=== PATIENT | male | born 1965 | race Caucasian/White ===

== ENCOUNTER 2017-04-16 12:52 | Emergency (ER) | payer SELFPAY ==
[~2017-04-16] VITALS: Ht 167.6 cm; Wt 97.2 kg
[~2017-04-16 12:52] MED LIST: ATOR20TA PO; HYDR12.53 PO; IBUP200C75 PO; LISI5TAB7 PO; METF500T4 PO; OXYC1TAB7 PO
[2017-04-16 13:00] VITALS: BP 166/99
[2017-04-16] MEDS ORDERED: SULFAMETH./TRIMETHOPRIM DS 800MG/160MG TABLET PO ONE (14:00)
[2017-04-16] MEDS ORDERED: IBUPROFEN 200 MG TABLET PO ONE (14:00)
[2017-04-16] MEDS ORDERED: CEFAZOLIN 1,000 MG ONE (14:00)
[2017-04-16] MEDS ORDERED: IBUPROFEN 200 MG TABLET ONE (14:00)
[2017-04-16] MEDS ORDERED: DIPHENHYDRAMINE 25 MG CAPSULE ONE (14:00)
[2017-04-16] MEDS ORDERED: CEFAZOLIN 1,000 MG IM ONE (14:00)
[2017-04-16] MEDS ORDERED: DIPHENHYDRAMINE 25 MG CAPSULE PO ONE (14:00)
[2017-04-16] MEDS ORDERED: SULFAMETH./TRIMETHOPRIM DS 800MG/160MG TABLET ONE (14:01)
== END 2017-04-16 14:10 | disposition home or self-care (01) ==
LOC: ED 13:55
DX: L03.114 Cellulitis of left upper limb (principal); E11.65 Type 2 diabetes mellitus with hyperglycemia; E78.00 Pure hypercholesterolemia, unspecified; I10 Essential (primary) hypertension; Z87.01 Personal history of pneumonia (recurrent); Z91.14 Patient's other noncompliance with medication regimen; Z98.890 Other specified postprocedural states
CPT/HCPCS: 96372; 99284; J0690; Q0163

== ENCOUNTER 2017-09-10 09:12 | Emergency (ER) | payer SELFPAY ==
[~2017-09-10] VITALS: Ht 167.6 cm; Wt 97.6 kg
[2017-09-10] MEDS ORDERED: morphine SULFATE 10 MG/ML, 1ML ONE ×2 (10:55→11:44)
[2017-09-10] MEDS ORDERED: ONDANSETRON 2MG/ML, 2ML ONE (10:55)
[2017-09-10] MEDS: MORPHINE SULFATE 4 MG/ML, 1ML IVPush PRN ×2 (11:04→11:45)
[2017-09-10 11:07] LABS: HEMATOCRIT 45.6 % (39.2-51.8); HEMOGLOBIN 15.8 g/dL (13.7-18.0); WHITE BLOOD COUNT 16.7 x10^3/uL (3.4-10)
[2017-09-10] MEDS ORDERED: LIDOCAINE 1%, 20ML ONE (11:09)
[2017-09-10 11:11] LABS: BLOOD UREA NITROGEN 11 mg/dL (7-18)
[2017-09-10] MEDS ORDERED: CEFAZOLIN PMX 1GM/50ML 50 ML ONE (11:28)
[2017-09-10] MEDS ORDERED: LIDOCAINE 1%, 20ML SQ ONE (12:00)
[2017-09-10] MEDS ORDERED: SODIUM CHLORIDE 0.9% 1,000ML IVBOLUS ONE (12:00)
[2017-09-10] MEDS ORDERED: ONDANSETRON 2MG/ML, 2ML IVPush ONE (12:00)
[2017-09-10] MEDS ORDERED: SODIUM CHLORIDE FLUSH 10ML SYR IVF ONE (12:00)
[2017-09-10] MEDS ORDERED: CEFAZOLIN PMX 1GM/50ML 50 ML IV ONE (12:00)
[2017-09-10 12:29] VITALS: BP 157/93
== END 2017-09-10 12:32 | disposition home or self-care (01) ==
LOC: ED 12:08
DX: L03.221 Cellulitis of neck (principal); D72.829 Elevated white blood cell count, unspecified
CPT/HCPCS: 10060; 36415; 80048; 82040; 83605; 85025; 93005; 96361; 96365; 96375; 96376; 99285; J0690; J2405; J3490; J7030

== ENCOUNTER 2017-09-13 13:25 | Inpatient (IN) | payer OTHER ==
[~2017-09-13] VITALS: Ht 172.7 cm; Wt 93.7 kg
[2017-09-13] MEDS ORDERED: VANCOMYCIN 1,900 MG in SODIUM CHLORIDE 0.9% 250 ML IV ONE (14:30)
[2017-09-13] MEDS ORDERED: VANCOMYCIN PER PHARMACY IV ONE (14:30)
[2017-09-13] MEDS ORDERED: SODIUM CHLORIDE FLUSH 10ML SYR IVF ONE ×2 (14:30→17:00)
[2017-09-13] MEDS ORDERED: MORPHINE SULFATE 4 MG/ML, 1ML IVPush PRN (16:00)
[2017-09-13] MEDS ORDERED: morphine SULFATE 10 MG/ML, 1ML ONE (16:02)
[2017-09-13] MEDS ORDERED: DIPHENHYDRAMINE 50 MG/ML, 1ML ONE (16:44)
[2017-09-13] MEDS ORDERED: ONDANSETRON 2MG/ML, 2ML ONE (16:44)
[2017-09-13] MEDS ORDERED: HYDROmorphone 1 MG/ML, 1ML ONE ×2 (16:46→20:20)
[2017-09-13] MEDS ORDERED: DIPHENHYDRAMINE 50 MG/ML, 1ML IVPush ONE (17:00)
[2017-09-13] MEDS ORDERED: HYDROmorphone 1 MG/ML, 1ML IVPush PRN (17:00)
[2017-09-13] MEDS ORDERED: ONDANSETRON 2MG/ML, 2ML IVPush ONE (17:00)
[2017-09-13] MEDS ORDERED: SODIUM CHLORIDE 0.9% 1,000ML IVBOLUS ONE (17:00)
[2017-09-13 17:24] LABS: HEMATOCRIT 49.6 % (39.2-51.8); HEMOGLOBIN 16.7 g/dL (13.7-18.0); WHITE BLOOD COUNT 11.4 x10^3/uL (3.4-10)
[2017-09-13 17:26] LABS: BLOOD UREA NITROGEN 9 mg/dL (7-18)
[2017-09-13] MEDS ORDERED: hydrALAzine 20 MG/ML, 1ML IVPush PRN (19:00)
[2017-09-13] MEDS ORDERED: ONDANSETRON 2MG/ML, 2ML IVPush PRN (19:00)
[2017-09-13] MEDS ORDERED: ACETAMINOPHEN 500 MG TABLET PO PRN (19:00)
[2017-09-13] MEDS ORDERED: LORazepam 2 MG/ML, 1ML IVPush PRN (19:00)
[2017-09-13] MEDS ORDERED: VANCOMYCIN PER PHARMACY MC SCH (19:00)
[2017-09-13 20:00] VITALS: BP 151/90
[2017-09-13 20:18] VITALS: BP 150/90
[2017-09-13] MEDS ORDERED: PHARMACOKINETIC MONITORING MC PRN (20:30)
[2017-09-13] MEDS ORDERED: PHARMACOKINETIC CONSULTATION MC ONE (20:30)
[2017-09-13] MEDS: HYDROmorphone 2 MG/ML, 1ML IVPush PRN (20:30)
[2017-09-13] MEDS: FAMOTIDINE 20 MG/2 ML IVPush SCH (21:03)
[2017-09-13] MEDS: SODIUM CHLORIDE FLUSH 10ML SYR IVF SCH (21:03)
[2017-09-13] MEDS: ATORVASTATIN 20 MG TABLET PO SCH (21:04)
[2017-09-13] MEDS: INSULIN ASPART 100 UNITS/ML, PEN SQ-INSULIN SCH (21:04)
[2017-09-14] MEDS ORDERED: HYDROmorphone 1 MG/ML, 1ML ONE ×3 (01:32→23:28)
[2017-09-14] MEDS: HYDROmorphone 2 MG/ML, 1ML IVPush PRN ×3 (01:37→23:34)
[2017-09-14 02:22] VITALS: BP 138/88
[2017-09-14] MEDS ORDERED: VANCOMYCIN 1,600 MG in SODIUM CHLORIDE 0.9% 250 ML IV SCH (04:00)
[2017-09-14] MEDS ORDERED: DIPHENHYDRAMINE 50 MG/ML, 1ML IVPush ONE (05:00)
[2017-09-14] MEDS: CLINDAMYCIN PMX 600MG/50ML 50 ML IV SCH ×4 (05:20→23:34)
[2017-09-14 06:01] LABS: HEMATOCRIT 41.4 % (39.2-51.8); HEMOGLOBIN 14.4 g/dL (13.7-18.0); WHITE BLOOD COUNT 11.4 x10^3/uL (3.4-10)
[2017-09-14 06:06] LABS: BLOOD UREA NITROGEN 10 mg/dL (7-18)
[2017-09-14 06:20] VITALS: BP 154/84
[2017-09-14] MEDS: INSULIN ASPART 100 UNITS/ML, PEN SQ-INSULIN SCH ×4 (08:37→21:22)
[2017-09-14] MEDS: LISINOPRIL 5 MG TABLET PO SCH (08:39)
[2017-09-14] MEDS: FAMOTIDINE 20 MG/2 ML IVPush SCH ×2 (08:40→21:20)
[2017-09-14] MEDS: SODIUM CHLORIDE FLUSH 10ML SYR IVF SCH ×3 (08:40→21:20)
[2017-09-14 13:05] VITALS: BP 154/95
[2017-09-14] MEDS ORDERED: DEXTROSE 50%, 50ML SYRINGE IVPush PRN ×2 (15:30→20:00)
[2017-09-14] MEDS ORDERED: DEXTROSE 4 GM TAB.CHEW PO PRN ×2 (15:30→20:00)
[2017-09-14] MEDS ORDERED: GLUCAGON 1 MG IM PRN (15:30)
[2017-09-14] MEDS: OXYcodone IR 5MG TABLET PO PRN (16:32)
[2017-09-14 18:38] VITALS: BP 155/91
[2017-09-14] MEDS ORDERED: ONDANSETRON 2MG/ML, 2ML IVPush PRN (20:00)
[2017-09-14] MEDS ORDERED: LORazepam 2 MG/ML, 1ML IVPush PRN (20:00)
[2017-09-14] MEDS ORDERED: ACETAMINOPHEN 500 MG TABLET PO PRN (20:00)
[2017-09-14] MEDS ORDERED: SODIUM CHLORIDE FLUSH 10ML SYR IVF SCH (21:00)
[2017-09-14] MEDS: ATORVASTATIN 20 MG TABLET PO SCH (21:19)
[2017-09-14] MEDS: ENOXAPARIN 40 MG/0.4 ML SQ SCH (21:21)
[2017-09-15 00:52] VITALS: BP 167/96
[2017-09-15] MEDS ORDERED: HYDROmorphone 1 MG/ML, 1ML ONE (03:26)
[2017-09-15] MEDS: HYDROmorphone 2 MG/ML, 1ML IVPush PRN (03:37)
[2017-09-15 05:51] LABS: HEMATOCRIT 43.9 % (39.2-51.8); HEMOGLOBIN 15.2 g/dL (13.7-18.0); WHITE BLOOD COUNT 9.3 x10^3/uL (3.4-10)
[2017-09-15 06:01] LABS: BLOOD UREA NITROGEN 14 mg/dL (7-18)
[2017-09-15] MEDS: CLINDAMYCIN PMX 600MG/50ML 50 ML IV SCH ×4 (06:02→22:04)
[2017-09-15] MEDS: INSULIN ASPART 100 UNITS/ML, PEN SQ-INSULIN SCH ×4 (07:49→22:05)
[2017-09-15] MEDS: OXYcodone IR 5MG TABLET PO PRN ×4 (07:50→22:06)
[2017-09-15] MEDS: FAMOTIDINE 20 MG/2 ML IVPush SCH ×2 (07:50→22:04)
[2017-09-15] MEDS: LISINOPRIL 5 MG TABLET PO SCH (07:50)
[2017-09-15] MEDS: SODIUM CHLORIDE FLUSH 10ML SYR IVF SCH ×4 (07:51→22:04)
[2017-09-15 07:57] VITALS: BP 153/87
[2017-09-15 08:10] VITALS: BP 153/87
[2017-09-15] MEDS: INSULIN DETEMIR 100 UNITS/ML, PEN SQ-INSULIN SCH ×2 (09:36→22:06)
[2017-09-15 12:07] VITALS: BP 148/89
[2017-09-15 20:36] VITALS: BP 139/92
[2017-09-15] MEDS: ENOXAPARIN 40 MG/0.4 ML SQ SCH (22:04)
[2017-09-15] MEDS: ATORVASTATIN 20 MG TABLET PO SCH (22:06)
[2017-09-16 01:59] VITALS: BP 138/78
[2017-09-16] MEDS: OXYcodone IR 5MG TABLET PO PRN ×5 (02:50→21:21)
[2017-09-16] MEDS: CLINDAMYCIN PMX 600MG/50ML 50 ML IV SCH ×4 (05:47→23:27)
[2017-09-16 07:00] VITALS: BP 108/72
[2017-09-16] MEDS: SODIUM CHLORIDE FLUSH 10ML SYR IVF SCH ×3 (08:48→21:05)
[2017-09-16] MEDS: FAMOTIDINE 20 MG/2 ML IVPush SCH ×2 (08:48→21:03)
[2017-09-16] MEDS: LISINOPRIL 5 MG TABLET PO SCH (08:48)
[2017-09-16] MEDS: INSULIN ASPART 100 UNITS/ML, PEN SQ-INSULIN SCH ×4 (08:49→21:04)
[2017-09-16] MEDS: INSULIN DETEMIR 100 UNITS/ML, PEN SQ-INSULIN SCH ×2 (08:50→21:05)
[2017-09-16] MEDS: metFORMIN 500 MG TABLET PO SCH ×2 (11:36→21:03)
[2017-09-16] MEDS: LACTOBACILLUS CHEW TABLET PO SCH ×3 (11:36→21:03)
[2017-09-16 13:55] VITALS: BP 126/76
[2017-09-16 19:40] VITALS: BP 144/88
[2017-09-16] MEDS: ATORVASTATIN 20 MG TABLET PO SCH (21:03)
[2017-09-16] MEDS: ENOXAPARIN 40 MG/0.4 ML SQ SCH (21:05)
[2017-09-17 02:42] VITALS: BP 138/88
[2017-09-17] MEDS: CLINDAMYCIN PMX 600MG/50ML 50 ML IV SCH ×4 (06:13→22:31)
[2017-09-17 08:00] VITALS: BP 118/75
[2017-09-17] MEDS: OXYcodone IR 5MG TABLET PO PRN ×2 (08:05→12:05)
[2017-09-17] MEDS: LISINOPRIL 5 MG TABLET PO SCH (08:06)
[2017-09-17] MEDS: SODIUM CHLORIDE FLUSH 10ML SYR IVF SCH ×2 (08:06→20:06)
[2017-09-17] MEDS: metFORMIN 500 MG TABLET PO SCH ×2 (08:06→20:03)
[2017-09-17] MEDS: FAMOTIDINE 20 MG/2 ML IVPush SCH (08:06)
[2017-09-17] MEDS: LACTOBACILLUS CHEW TABLET PO SCH ×3 (08:06→20:03)
[2017-09-17] MEDS: INSULIN ASPART 100 UNITS/ML, PEN SQ-INSULIN SCH ×4 (08:08→20:05)
[2017-09-17] MEDS: INSULIN DETEMIR 100 UNITS/ML, PEN SQ-INSULIN SCH ×2 (08:09→20:05)
[2017-09-17 14:27] VITALS: BP 106/70
[2017-09-17] MEDS: ENOXAPARIN 40 MG/0.4 ML SQ SCH (20:03)
[2017-09-17] MEDS: FAMOTIDINE 20 MG TABLET PO SCH (20:03)
[2017-09-17] MEDS: ATORVASTATIN 20 MG TABLET PO SCH (20:04)
[2017-09-17 20:31] VITALS: BP 110/70
[2017-09-18 00:46] VITALS: BP 130/88
[2017-09-18] MEDS: CLINDAMYCIN PMX 600MG/50ML 50 ML IV SCH ×2 (05:38→11:52)
[2017-09-18 08:15] VITALS: BP 138/88
[2017-09-18] MEDS: INSULIN ASPART 100 UNITS/ML, PEN SQ-INSULIN SCH ×2 (08:16→11:52)
[2017-09-18] MEDS: LACTOBACILLUS CHEW TABLET PO SCH (08:17)
[2017-09-18] MEDS: INSULIN DETEMIR 100 UNITS/ML, PEN SQ-INSULIN SCH (08:17)
[2017-09-18] MEDS: FAMOTIDINE 20 MG TABLET PO SCH (08:17)
[2017-09-18] MEDS: LISINOPRIL 5 MG TABLET PO SCH (08:17)
[2017-09-18] MEDS: metFORMIN 500 MG TABLET PO SCH (08:17)
[2017-09-18] MEDS: SODIUM CHLORIDE FLUSH 10ML SYR IVF SCH (08:17)
[2017-09-18] MEDS ORDERED: SULF1TAB24 PO (11:00)
[2017-09-18 13:15] VITALS: BP 137/89
== END 2017-09-18 15:00 | disposition home or self-care (01) | DRG 603 ==
LOC: ED 13:52 → EDIP 15:56 → 4WST 20:16 → DCLOUNGE 09-18 14:44
PROVIDERS: ADMIT Internal Medicine; ATTEND Hospitalist
DX: L03.221 Cellulitis of neck (principal); E11.65 Type 2 diabetes mellitus with hyperglycemia; E87.2 Acidosis; E87.1 Hypo-osmolality and hyponatremia; L02.11 Cutaneous abscess of neck; E78.00 Pure hypercholesterolemia, unspecified; E78.5 Hyperlipidemia, unspecified; G56.00 Carpal tunnel syndrome, unspecified upper limb; G89.4 Chronic pain syndrome; I10 Essential (primary) hypertension; L02.92 Furuncle, unspecified; L02.93 Carbuncle, unspecified; T63.301A Toxic effect of unspecified spider venom, accidental (unintentional), initial encounter; W57.XXXA Bitten or stung by nonvenomous insect and other nonvenomous arthropods, initial encounter; Y93.89 Activity, other specified; Y92.89 Other specified places as the place of occurrence of the external cause; Y99.8 Other external cause status; Z83.3 Family history of diabetes mellitus; Z91.14 Patient's other noncompliance with medication regimen; Z87.01 Personal history of pneumonia (recurrent); Z79.899 Other long term (current) drug therapy; Z79.84 Long term (current) use of oral hypoglycemic drugs; Z88.0 Allergy status to penicillin
CPT/HCPCS: 36415; 76536; 80048; 82040; 82565; 82962; 83036; 83605; 84520; 85025; 87040; 96365; 96366; 96375; J1170; J1650; J1815; J2405; J3370; J1200; J7030; J7050; S0028

== ENCOUNTER 2017-12-16 17:26 | Emergency (ER) | payer MEDICAID, OTHER ==
[~2017-12-16] VITALS: Ht 167.6 cm; Wt 99.2 kg
[~2017-12-16 17:26] MED LIST changes: +SULF1TAB24 PO
[2017-12-16] MEDS ORDERED: KETOROLAC 30 MG/1 ML ONE (17:43)
[2017-12-16] MEDS ORDERED: DIAZEPAM 5 MG TABLET ONE (17:43)
[2017-12-16] MEDS ORDERED: KETOROLAC 30 MG/1 ML IM ONE (18:00)
[2017-12-16] MEDS ORDERED: DIAZEPAM 5 MG TABLET PO ONE (18:00)
[2017-12-16 18:02] LABS: BASOPHILS # (AUTO) 0.06 x10^3/uL (0-0.1); BASOPHILS % (AUTO) 1 % (0-1); EOSINOPHILS # (AUTO) 0.54 x10^3/uL (0-0.4); EOSINOPHILS % (AUTO) 7 % (1-7); LYMPHOCYTES % (AUTO) 32 % (22-44); MD NO; MEAN CORPUSCULAR HEMOGLOBIN 29.4 pg (27.5-34.5); MEAN CORPUSCULAR HGB CONC 34.4 g/dL (33.2-36.2); MEAN CORPUSCULAR VOLUME 85.4 fL (81-97); MEAN PLATELET VOLUME 9.5 fL (7.4-10.4); MONOCYTES % (AUTO) 9 % (2-9); NEUTROPHILS # (AUTO) 3.95 x10^3/uL (1.8-6.8); NEUTROPHILS % (AUTO) 51 % (42-75); PLATELET COUNT 233 x10^3/uL (130-400); RED BLOOD COUNT 5.68 x10^6/uL (4.38-5.82); RED CELL DISTRIBUTION WIDTH 13.4 % (9.4-14.8)
[2017-12-16 18:12] LABS: ALBUMIN 3.6 g/dL (3.4-5.0); ANION GAP 8 mmol/L (5-15); CALCIUM 8.6 mg/dL (8.5-10.1); CHLORIDE 101 mmol/L (98-107); CREATININE 0.78 mg/dL (0.7-1.3)
[2017-12-16] MEDS ORDERED: SODIUM CHLORIDE FLUSH 10ML SYR IVF ONE (18:30)
[2017-12-16] MEDS ORDERED: SODIUM CHLORIDE 0.9% 1,000ML IVBOLUS ONE (18:30)
[2017-12-16 19:37] VITALS: BP 155/99
== END 2017-12-16 19:39 | disposition home or self-care (01) ==
LOC: ED 19:33
DX: M51.16 Intervertebral disc disorders with radiculopathy, lumbar region (principal); M51.37 Other intervertebral disc degeneration, lumbosacral region; E11.65 Type 2 diabetes mellitus with hyperglycemia; I10 Essential (primary) hypertension; E78.00 Pure hypercholesterolemia, unspecified; M19.90 Unspecified osteoarthritis, unspecified site; R20.0 Anesthesia of skin
CPT/HCPCS: 36415; 72110; 73130; 80048; 82040; 82962; 85025; 96360; 96372; 99285; J1885; J7030

== ENCOUNTER 2020-11-04 08:44 | Inpatient (IN) | payer MEDICAID ==
[~2020-11-04] VITALS: Ht 167.6 cm; Wt 105.7 kg
[~2020-11-04 08:44] MED LIST changes: +AMLO-150 PO; +CEPH-368 PO; +HYDR12.517 PO; -HYDR12.53 PO; +INSU100I13 SQ-INSULIN; +KETO10TA PO; +LISI-170 PO; +METF500T17 PO; -METF500T4 PO
--- NOTE | 2020-11-04 08:45 | NUR ---
patient arrives with kali from home with a large swollen skin abcess/cellulitis on back right shoulder. he has a historty of this and scar from prior drainage just below current wound. he states he has been taking advil every four hours. hx diabetes htn
[2020-11-04] MEDS ORDERED: ASPIRIN 81 MG TABLET CHEW ONE (09:16)
[2020-11-04] MEDS ORDERED: ASPIRIN 81 MG TABLET CHEW PO ONE (09:30)
[2020-11-04 09:33] LABS: ALANINE AMINOTRANSFERASE 25 U/L (12-78); ALBUMIN 2.6 g/dL (3.4-5.0); ANION GAP 9 mmol/L (5-15); CALCIUM 9.2 mg/dL (8.5-10.1); CHLORIDE 99 mmol/L (98-107); CREATININE 0.83 mg/dL (0.7-1.3)
[2020-11-04 09:35] LABS: BASOPHILS % (AUTO) 0 % (0-1); EOSINOPHILS % (AUTO) 0 % (1-7); LYMPHOCYTES % (AUTO) 5 % (22-44); MEAN CORPUSCULAR HEMOGLOBIN 29.1 pg (27.5-34.5); MONOCYTES % (AUTO) 11 % (2-9); PLATELET COUNT 285 x10^3/uL (130-400); RED BLOOD COUNT 5.02 x10^6/uL (4.38-5.82); RED CELL DISTRIBUTION WIDTH 12.9 % (9.4-14.8)
--- NOTE | 2020-11-04 09:37 | NUR ---
will give abx after cultures drawn
[2020-11-04 09:38] LABS: ALKALINE PHOSPHATASE 258 U/L (45-117); BILIRUBIN,TOTAL 1.6 mg/dL (0.2-1.0); TOTAL PROTEIN 8.1 g/dL (6.4-8.2); TROPONIN I < 0.015 ng/mL (0.000-0.045)
[2020-11-04] MEDS ORDERED: CLINDAMYCIN PMX 600MG/50ML 50 ML ONE (09:50)
[2020-11-04] MEDS ORDERED: SODIUM CHLORIDE FLUSH 10ML SYR IVF ONE (10:00)
[2020-11-04] MEDS ORDERED: CLINDAMYCIN PMX 600MG/50ML 50 ML IV ONE (10:00)
[2020-11-04] MEDS ORDERED: SODIUM CHLORIDE 0.9% 1,000ML IVBOLUS ONE ×2 (10:00→11:00)
--- NOTE | 2020-11-04 10:03 | NUR ---
both cultures drawn, then gave abx. patient in bed resting on monitor.
[2020-11-04 10:14] LABS: MD YES
[2020-11-04 10:16] LABS: BAND#(MANUAL) 2.07 x10^3/uL; BANDS%(MANUAL) 8 % (0-7); BASOS#(MANUAL) 0.26 x10^3/uL (0-0.1); BASOS% (MANUAL) 1 % (0-1); LYMPH#(MANUAL) 1.81 x10^3/uL (1-3.4); LYMPHS% (MANUAL) 7 % (22-44); MONOS#(MANUAL) 4.14 x10^3/uL (0.3-2.7); MONOS% (MANUAL) 16 % (2-9); SEG#(MANUAL) 17.61 x10^3/uL (1.8-6.8); SEGS% (MANUAL) 68 % (42-75)
[2020-11-04 10:17] LABS: <PLATELET ESTIMATE> ADEQUATE; <PLT MORPHOLOGY> NORMAL PLT MORPH; <RBC MORPHOLOGY> NORMAL
--- NOTE | 2020-11-04 11:36 | NUR ---
yris pink sheet completed with chart ground zero 09:55
[2020-11-04] MEDS ORDERED: SODIUM CHLORIDE FLUSH 10ML SYR IVF PRN (12:00)
[2020-11-04] MEDS ORDERED: SODIUM CHLORIDE 0.9% 1,000 ML IV ONE (12:00)
--- NOTE | 2020-11-04 12:00 | NUR ---
called for report, nurse to call back
--- NOTE | 2020-11-04 12:14 | NUR ---
report sbar to tuyet. patient rtg
[2020-11-04] MEDS ORDERED: LABETALOL 5MG/ML, 20ML IVPush PRN (14:00)
[2020-11-04] MEDS: ENOXAPARIN 40 MG/0.4 ML SQ SCH (14:00)
[2020-11-04] MEDS: ACETAMINOPHEN 325 MG TABLET PO PRN ×2 (14:17→23:00)
[2020-11-04] MEDS: LACTATED RINGERS 1,000 ML IV SCH (14:18)
[2020-11-04 14:29] VITALS: BP 164/86
[2020-11-04] MEDS ORDERED: PHARMACOKINETIC MONITORING MC PRN (14:30)
[2020-11-04] MEDS ORDERED: VANCOMYCIN 1,800 MG in SODIUM CHLORIDE 0.9% 250 ML IV ONE (15:00)
[2020-11-04] MEDS: INSULIN LISPRO 100 UNITS/ML, PEN SQ-INSULIN SCH ×2 (16:26→23:01)
[2020-11-04 19:32] VITALS: BP 134/88
[2020-11-04] MEDS ORDERED: ATORVASTATIN 20 MG TABLET PO SCH (21:00)
[2020-11-04 22:59] VITALS: BP 123/75
[2020-11-04] MEDS: LISINOPRIL 20 MG TABLET PO SCH (22:59)
[2020-11-04] MEDS: metFORMIN 500 MG TABLET PO SCH (22:59)
[2020-11-04] MEDS: AMLODIPINE 5 MG TABLET PO SCH (22:59)
[2020-11-04] MEDS: INSULIN GLARGINE 100 UNITS/ML, PEN SQ-INSULIN SCH (23:01)
[2020-11-05 00:21] VITALS: BP 131/88
[2020-11-05] MEDS ORDERED: VANCOMYCIN 1,600 MG in SODIUM CHLORIDE 0.9% 250 ML IV SCH (03:00)
[2020-11-05] MEDS: LACTATED RINGERS 1,000 ML IV SCH (03:26)
[2020-11-05 05:29] LABS: MEAN CORPUSCULAR HGB CONC 34.3 g/dL (33.2-36.2); MEAN PLATELET VOLUME 10.2 fL (7.4-10.4); PLATELET COUNT 329 x10^3/uL (130-400); RED BLOOD COUNT 4.75 x10^6/uL (4.38-5.82); RED CELL DISTRIBUTION WIDTH 12.8 % (9.4-14.8)
[2020-11-05 05:39] LABS: ANION GAP 9 mmol/L (5-15); CALCIUM 8.4 mg/dL (8.5-10.1); CHLORIDE 99 mmol/L (98-107)
[2020-11-05 05:45] LABS: CHOL/HDL RATIO 3.9; CHOLESTEROL, TOTAL 121 mg/dL (140-239); CREATININE 0.75 mg/dL (0.7-1.3); HDL CHOL % 26 % (26-37); HDL CHOLESTEROL (DIRECT) 31 mg/dL (40-60); LDL CHOLESTEROL,CALCULATED 66 mg/dL (54-169); LDL/HDL RATIO 2.1 (0.5-3.0); TRIGLYCERIDES 118 mg/dL (50-200); VLDL CHOLESTEROL 24 mg/dL (0-25)
[2020-11-05 06:19] LABS: MD YES
[2020-11-05 06:20] LABS: <RBC MORPHOLOGY> NORMAL; BAND#(MANUAL) 1.89 x10^3/uL; BANDS%(MANUAL) 7 % (0-7); EOS#(MANUAL) 0.27 x10^3/uL (0.0-0.4); EOS% (MANUAL) 1 % (1-7); LYMPH#(MANUAL) 0.81 x10^3/uL (1-3.4); LYMPHS% (MANUAL) 3 % (22-44); METAMYELOCYTES# (MANUAL) 0.27 x10^3/uL (0-0); METAMYELOCYTES% (MANUAL) 1 % (0-1); MONOS#(MANUAL) 4.05 x10^3/uL (0.3-2.7); MONOS% (MANUAL) 15 % (2-9); SEG#(MANUAL) 19.71 x10^3/uL (1.8-6.8); SEGS% (MANUAL) 73 % (42-75)
[2020-11-05 06:21] LABS: <PLATELET ESTIMATE> ADEQUATE; <PLT MORPHOLOGY> NORMAL PLT MORPH
[2020-11-05] MEDS: ACETAMINOPHEN 325 MG TABLET PO PRN ×3 (06:21→20:46)
[2020-11-05 06:30] VITALS: BP 131/76
[2020-11-05] MEDS: INSULIN LISPRO 100 UNITS/ML, PEN SQ-INSULIN SCH ×4 (07:54→20:53)
[2020-11-05] MEDS: AMLODIPINE 5 MG TABLET PO SCH ×2 (07:54→20:47)
[2020-11-05] MEDS: metFORMIN 500 MG TABLET PO SCH ×2 (07:55→20:54)
[2020-11-05] MEDS: LISINOPRIL 20 MG TABLET PO SCH ×2 (07:55→20:47)
[2020-11-05] MEDS: DIPHENHYDRAMINE 25 MG CAPSULE PO PRN (08:11)
[2020-11-05] MEDS: INSULIN GLARGINE 100 UNITS/ML, PEN SQ-INSULIN SCH ×2 (08:12→20:54)
[2020-11-05] MEDS ORDERED: DAPTOMYCIN IVPB SCH (08:30)
[2020-11-05] MEDS ORDERED: POTASSIUM CHLORIDE 20 MEQ TAB.ER.PRT PO ONE ×2 (08:30→10:30)
[2020-11-05] MEDS ORDERED: SODIUM CHLORIDE 0.9% IVPB SCH (08:30)
[2020-11-05] MEDS ORDERED: VANCOMYCIN PER PHARMACY MC SCH (09:00)
[2020-11-05] MEDS: AMPICILLIN/SULBACTAM 3 GM in SODIUM CHLORIDE 0.9% 100 ML IV SCH ×3 (09:26→22:15)
[2020-11-05] MEDS: OXYcodone IR 5MG TABLET PO PRN ×3 (09:43→20:46)
[2020-11-05] MEDS: DAPTOMYCIN 600 MG in SODIUM CHLORIDE 0.9% 100 ML IVPB SCH (11:03)
[2020-11-05 12:45] VITALS: BP 140/83
[2020-11-05] MEDS ORDERED: ACETAMINOPHEN 650 MG/20.3 ML UDC ONE (13:01)
[2020-11-05] MEDS: ENOXAPARIN 40 MG/0.4 ML SQ SCH (13:20)
[2020-11-05] MEDS: SODIUM CHLORIDE 0.9% 1,000 ML IV SCH ×2 (13:22→23:48)
[2020-11-05] MEDS ORDERED: LACTATED RINGERS 1,000 ML IV SCH (14:00)
[2020-11-05 19:49] VITALS: BP 135/87
[2020-11-06 00:24] VITALS: BP 126/81
[2020-11-06] MEDS: OXYcodone IR 5MG TABLET PO PRN ×5 (01:52→22:24)
[2020-11-06] MEDS: ACETAMINOPHEN 325 MG TABLET PO PRN ×2 (01:56→06:31)
[2020-11-06] MEDS: AMPICILLIN/SULBACTAM 3 GM in SODIUM CHLORIDE 0.9% 100 ML IV SCH ×4 (03:58→22:23)
[2020-11-06] MEDS: ONDANSETRON 2MG/ML, 2ML IVPush PRN ×2 (04:42→22:24)
[2020-11-06] MEDS: DIPHENHYDRAMINE 25 MG CAPSULE PO PRN ×2 (04:49→09:33)
[2020-11-06 07:20] LABS: ANION GAP 4 mmol/L (5-15); CALCIUM 8.3 mg/dL (8.5-10.1); CHLORIDE 104 mmol/L (98-107)
[2020-11-06 07:22] LABS: MEAN CORPUSCULAR HEMOGLOBIN 28.9 pg (27.5-34.5); MEAN PLATELET VOLUME 9.7 fL (7.4-10.4); PLATELET COUNT 308 x10^3/uL (130-400); RED BLOOD COUNT 4.48 x10^6/uL (4.38-5.82); RED CELL DISTRIBUTION WIDTH 12.9 % (9.4-14.8)
[2020-11-06] MEDS: INSULIN LISPRO 100 UNITS/ML, PEN SQ-INSULIN SCH ×4 (07:36→22:45)
[2020-11-06 07:54] VITALS: BP 133/80
[2020-11-06 07:57] LABS: MD YES
[2020-11-06] MEDS: metFORMIN 500 MG TABLET PO SCH ×2 (07:57→22:22)
[2020-11-06 07:58] LABS: <PLATELET ESTIMATE> ADEQUATE; <PLT MORPHOLOGY> NORMAL PLT MORPH; <RBC MORPHOLOGY> NORMAL; EOS#(MANUAL) 0.37 x10^3/uL (0.0-0.4); EOS% (MANUAL) 2 % (1-7); LYMPH#(MANUAL) 1.68 x10^3/uL (1-3.4); LYMPHS% (MANUAL) 9 % (22-44); METAMYELOCYTES# (MANUAL) 0.19 x10^3/uL (0-0); METAMYELOCYTES% (MANUAL) 1 % (0-1); MONOS% (MANUAL) 8 % (2-9); SEG#(MANUAL) 14.96 x10^3/uL (1.8-6.8); SEGS% (MANUAL) 80 % (42-75)
[2020-11-06] MEDS: LISINOPRIL 20 MG TABLET PO SCH ×2 (07:58→22:22)
[2020-11-06] MEDS: AMLODIPINE 5 MG TABLET PO SCH ×2 (07:58→22:22)
[2020-11-06] MEDS ORDERED: POTASSIUM CHLORIDE 20 MEQ TAB.ER.PRT PO ONE ×2 (08:30→12:00)
[2020-11-06] MEDS: INSULIN GLARGINE 100 UNITS/ML, PEN SQ-INSULIN SCH ×2 (08:53→22:46)
[2020-11-06] MEDS: SODIUM CHLORIDE 0.9% 1,000 ML IV SCH (09:30)
[2020-11-06] MEDS: DAPTOMYCIN 600 MG in SODIUM CHLORIDE 0.9% 100 ML IVPB SCH (12:09)
[2020-11-06] MEDS: ENOXAPARIN 40 MG/0.4 ML SQ SCH (13:44)
[2020-11-06 14:02] VITALS: BP 146/75
[2020-11-06 20:34] VITALS: BP 158/85
[2020-11-07 01:37] VITALS: BP 125/66
[2020-11-07] MEDS: DIPHENHYDRAMINE 25 MG CAPSULE PO PRN (03:08)
[2020-11-07] MEDS: OXYcodone IR 5MG TABLET PO PRN ×5 (03:09→23:26)
[2020-11-07] MEDS: AMPICILLIN/SULBACTAM 3 GM in SODIUM CHLORIDE 0.9% 100 ML IV SCH ×4 (04:41→22:36)
[2020-11-07 05:42] LABS: BASOPHILS % (AUTO) 1 % (0-1); EOSINOPHILS % (AUTO) 2 % (1-7); LYMPHOCYTES % (AUTO) 13 % (22-44); MEAN CORPUSCULAR HGB CONC 34.1 g/dL (33.2-36.2); MEAN PLATELET VOLUME 9.7 fL (7.4-10.4); MONOCYTES % (AUTO) 13 % (2-9); NEUTROPHILS % (AUTO) 70 % (42-75); PLATELET COUNT 293 x10^3/uL (130-400); RED BLOOD COUNT 4.19 x10^6/uL (4.38-5.82)
[2020-11-07 06:32] LABS: MD SCAN
[2020-11-07 07:45] VITALS: BP 141/80
[2020-11-07] MEDS: AMLODIPINE 5 MG TABLET PO SCH ×2 (08:10→20:39)
[2020-11-07] MEDS: ACETAMINOPHEN 325 MG TABLET PO PRN ×4 (08:10→23:26)
[2020-11-07] MEDS: LISINOPRIL 20 MG TABLET PO SCH ×2 (08:10→20:40)
[2020-11-07] MEDS: metFORMIN 500 MG TABLET PO SCH ×3 (08:10→20:40)
[2020-11-07] MEDS: INSULIN LISPRO 100 UNITS/ML, PEN SQ-INSULIN SCH ×5 (08:11→20:44)
[2020-11-07] MEDS: INSULIN GLARGINE 100 UNITS/ML, PEN SQ-INSULIN SCH ×2 (08:12→20:44)
[2020-11-07] MEDS: SODIUM CHLORIDE FLUSH 10ML SYR IVF SCH ×2 (12:30→20:40)
[2020-11-07 15:00] VITALS: BP 186/95
[2020-11-07] MEDS: ENOXAPARIN 40 MG/0.4 ML SQ SCH (15:28)
[2020-11-07 15:38] VITALS: BP 158/91
[2020-11-07 18:51] VITALS: BP 150/82
[2020-11-08 02:29] VITALS: BP 156/88
[2020-11-08] MEDS: ACETAMINOPHEN 325 MG TABLET PO PRN ×3 (04:18→21:07)
[2020-11-08] MEDS: OXYcodone IR 5MG TABLET PO PRN ×4 (04:18→21:08)
[2020-11-08] MEDS: AMPICILLIN/SULBACTAM 3 GM in SODIUM CHLORIDE 0.9% 100 ML IV SCH ×4 (04:19→22:54)
[2020-11-08 05:31] LABS: MEAN CORPUSCULAR HEMOGLOBIN 29.1 pg (27.5-34.5); MEAN CORPUSCULAR HGB CONC 34.3 g/dL (33.2-36.2); PLATELET COUNT 372 x10^3/uL (130-400); RED BLOOD COUNT 4.43 x10^6/uL (4.38-5.82); RED CELL DISTRIBUTION WIDTH 12.9 % (9.4-14.8)
[2020-11-08 05:40] LABS: ANION GAP 5 mmol/L (5-15); CALCIUM 8.9 mg/dL (8.5-10.1); CHLORIDE 104 mmol/L (98-107); CREATININE 0.58 mg/dL (0.7-1.3)
[2020-11-08 05:57] LABS: MD YES
[2020-11-08 05:59] LABS: BAND#(MANUAL) 0.88 x10^3/uL; BANDS%(MANUAL) 7 % (0-7); EOS#(MANUAL) 0.38 x10^3/uL (0.0-0.4); EOS% (MANUAL) 3 % (1-7); LYMPH#(MANUAL) 1.63 x10^3/uL (1-3.4); LYMPHS% (MANUAL) 13 % (22-44); METAMYELOCYTES% (MANUAL) 4 % (0-1); MONOS% (MANUAL) 12 % (2-9); MYELOCYTES# (MANUAL) 0.13 x10^3/uL (0-0); MYELOCYTES% (MANUAL) 1 % (0-0); SEGS% (MANUAL) 60 % (42-75)
[2020-11-08 06:00] LABS: <PLATELET ESTIMATE> ADEQUATE; <PLT MORPHOLOGY> NORMAL PLT MORPH; <RBC MORPHOLOGY> NORMAL; TOXIC GRAN 1+
[2020-11-08 07:38] VITALS: BP 160/97
[2020-11-08] MEDS: metFORMIN 500 MG TABLET PO SCH ×2 (09:00→16:08)
[2020-11-08] MEDS: INSULIN GLARGINE 100 UNITS/ML, PEN SQ-INSULIN SCH ×2 (09:02→20:35)
[2020-11-08] MEDS: SODIUM CHLORIDE FLUSH 10ML SYR IVF SCH ×2 (09:02→20:30)
[2020-11-08] MEDS: INSULIN LISPRO 100 UNITS/ML, PEN SQ-INSULIN SCH ×4 (09:02→20:35)
[2020-11-08] MEDS: AMLODIPINE 5 MG TABLET PO SCH ×2 (09:03→20:30)
[2020-11-08] MEDS: LISINOPRIL 20 MG TABLET PO SCH ×2 (09:03→20:30)
[2020-11-08] MEDS: ENOXAPARIN 40 MG/0.4 ML SQ SCH (13:11)
[2020-11-08 14:11] VITALS: BP 163/91
[2020-11-08 20:11] VITALS: BP 158/82
[2020-11-09 00:47] VITALS: BP 146/94
[2020-11-09] MEDS: ACETAMINOPHEN 325 MG TABLET PO PRN ×3 (02:27→19:30)
[2020-11-09] MEDS: OXYcodone IR 5MG TABLET PO PRN ×4 (02:28→19:27)
[2020-11-09] MEDS: AMPICILLIN/SULBACTAM 3 GM in SODIUM CHLORIDE 0.9% 100 ML IV SCH ×4 (04:20→21:51)
[2020-11-09 05:49] LABS: BASOPHILS % (AUTO) 1 % (0-1); EOSINOPHILS % (AUTO) 3 % (1-7); LYMPHOCYTES % (AUTO) 15 % (22-44); MEAN CORPUSCULAR HEMOGLOBIN 28.6 pg (27.5-34.5); MEAN CORPUSCULAR HGB CONC 34.1 g/dL (33.2-36.2); MONOCYTES % (AUTO) 11 % (2-9); NEUTROPHILS % (AUTO) 70 % (42-75); PLATELET COUNT 394 x10^3/uL (130-400); RED BLOOD COUNT 4.34 x10^6/uL (4.38-5.82); RED CELL DISTRIBUTION WIDTH 12.9 % (9.4-14.8)
[2020-11-09 05:56] LABS: MD NO
[2020-11-09 06:08] LABS: ANION GAP 5 mmol/L (5-15); CALCIUM 8.6 mg/dL (8.5-10.1); CHLORIDE 102 mmol/L (98-107)
[2020-11-09 06:11] LABS: CREATININE 0.71 mg/dL (0.7-1.3)
[2020-11-09 08:10] VITALS: BP 160/98
[2020-11-09] MEDS: INSULIN LISPRO 100 UNITS/ML, PEN SQ-INSULIN SCH ×4 (08:14→20:02)
[2020-11-09] MEDS: SODIUM CHLORIDE FLUSH 10ML SYR IVF SCH ×2 (08:14→19:51)
[2020-11-09] MEDS: AMLODIPINE 5 MG TABLET PO SCH ×2 (08:15→19:51)
[2020-11-09] MEDS: metFORMIN 500 MG TABLET PO SCH ×2 (08:16→16:06)
[2020-11-09] MEDS: LISINOPRIL 20 MG TABLET PO SCH ×2 (10:28→21:51)
[2020-11-09] MEDS: INSULIN GLARGINE 100 UNITS/ML, PEN SQ-INSULIN SCH ×2 (10:29→20:03)
[2020-11-09 12:15] VITALS: BP 176/98
[2020-11-09] MEDS ORDERED: INSULIN GLARGINE 100 UNITS/ML, PEN SQ-INSULIN ONE (14:00)
[2020-11-09] MEDS ORDERED: HYDROCHLOROTHIAZIDE 25 MG TABLET PO ONE (14:00)
[2020-11-09] MEDS: ENOXAPARIN 40 MG/0.4 ML SQ SCH (14:49)
[2020-11-09 19:32] VITALS: BP 176/96
[2020-11-10] MEDS: OXYcodone IR 5MG TABLET PO PRN ×5 (00:07→22:41)
[2020-11-10 03:17] VITALS: BP 155/80
[2020-11-10] MEDS: ACETAMINOPHEN 325 MG TABLET PO PRN ×4 (03:17→22:41)
[2020-11-10] MEDS: AMPICILLIN/SULBACTAM 3 GM in SODIUM CHLORIDE 0.9% 100 ML IV SCH ×4 (04:22→22:41)
[2020-11-10 05:51] LABS: BASOPHILS % (AUTO) 1 % (0-1); EOSINOPHILS % (AUTO) 3 % (1-7); LYMPHOCYTES % (AUTO) 15 % (22-44); MEAN CORPUSCULAR HEMOGLOBIN 28.9 pg (27.5-34.5); MEAN CORPUSCULAR HGB CONC 33.9 g/dL (33.2-36.2); MEAN PLATELET VOLUME 8.7 fL (7.4-10.4); MONOCYTES % (AUTO) 10 % (2-9); NEUTROPHILS % (AUTO) 72 % (42-75); PLATELET COUNT 408 x10^3/uL (130-400); RED CELL DISTRIBUTION WIDTH 12.8 % (9.4-14.8)
[2020-11-10 05:57] LABS: HCT (SEDRATE) 36.5 % (39.2-51.8)
[2020-11-10 06:02] LABS: MD NO
[2020-11-10 06:04] LABS: ALBUMIN 2.3 g/dL (3.4-5.0); ANION GAP 6 mmol/L (5-15); CALCIUM 8.9 mg/dL (8.5-10.1); CHLORIDE 103 mmol/L (98-107)
[2020-11-10 06:14] LABS: ALANINE AMINOTRANSFERASE 23 U/L (12-78); ALKALINE PHOSPHATASE 159 U/L (45-117); BILIRUBIN,TOTAL 0.3 mg/dL (0.2-1.0); CREATININE 0.71 mg/dL (0.7-1.3); TOTAL PROTEIN 7.2 g/dL (6.4-8.2)
[2020-11-10 07:30] VITALS: BP 162/99
[2020-11-10] MEDS: LISINOPRIL 20 MG TABLET PO SCH ×2 (07:54→19:44)
[2020-11-10] MEDS: HYDROCHLOROTHIAZIDE 25 MG TABLET PO SCH (07:54)
[2020-11-10] MEDS: AMLODIPINE 5 MG TABLET PO SCH ×2 (07:54→19:43)
[2020-11-10] MEDS: INSULIN LISPRO 100 UNITS/ML, PEN SQ-INSULIN SCH ×4 (07:55→19:42)
[2020-11-10] MEDS: INSULIN GLARGINE 100 UNITS/ML, PEN SQ-INSULIN SCH ×2 (07:55→19:42)
[2020-11-10] MEDS: metFORMIN 500 MG TABLET PO SCH ×2 (07:56→16:43)
[2020-11-10] MEDS: SODIUM CHLORIDE FLUSH 10ML SYR IVF SCH ×2 (07:56→19:41)
[2020-11-10] MEDS: METOPROLOL SUCCINATE 50 MG TAB.ER.24H PO SCH (10:29)
[2020-11-10 14:07] VITALS: BP 154/85
[2020-11-10] MEDS: ENOXAPARIN 40 MG/0.4 ML SQ SCH (14:18)
[2020-11-10 19:37] VITALS: BP 118/77
[2020-11-11 02:22] VITALS: BP 145/79
[2020-11-11] MEDS: ACETAMINOPHEN 325 MG TABLET PO PRN ×5 (02:48→22:20)
[2020-11-11] MEDS: OXYcodone IR 5MG TABLET PO PRN ×5 (02:49→22:20)
[2020-11-11] MEDS: AMPICILLIN/SULBACTAM 3 GM in SODIUM CHLORIDE 0.9% 100 ML IV SCH ×4 (04:56→22:30)
[2020-11-11 05:27] LABS: BASOPHILS % (AUTO) 1 % (0-1); EOSINOPHILS % (AUTO) 2 % (1-7); LYMPHOCYTES % (AUTO) 16 % (22-44); MEAN CORPUSCULAR HEMOGLOBIN 28.9 pg (27.5-34.5); MEAN CORPUSCULAR HGB CONC 34.2 g/dL (33.2-36.2); MEAN PLATELET VOLUME 8.7 fL (7.4-10.4); MONOCYTES % (AUTO) 9 % (2-9); NEUTROPHILS % (AUTO) 72 % (42-75); PLATELET COUNT 504 x10^3/uL (130-400); RED BLOOD COUNT 4.57 x10^6/uL (4.38-5.82)
[2020-11-11 05:37] LABS: ANION GAP 6 mmol/L (5-15); CALCIUM 9.2 mg/dL (8.5-10.1); CHLORIDE 102 mmol/L (98-107)
[2020-11-11 05:38] LABS: CREATININE 0.73 mg/dL (0.7-1.3)
[2020-11-11 06:24] LABS: MD SCAN
[2020-11-11] MEDS: METOPROLOL SUCCINATE 50 MG TAB.ER.24H PO SCH (06:40)
[2020-11-11] MEDS: INSULIN LISPRO 100 UNITS/ML, PEN SQ-INSULIN SCH ×7 (07:00→22:26)
[2020-11-11 07:51] VITALS: BP 117/83
[2020-11-11] MEDS: metFORMIN 500 MG TABLET PO SCH ×2 (08:00→16:01)
[2020-11-11] MEDS: HYDROCHLOROTHIAZIDE 25 MG TABLET PO SCH (08:28)
[2020-11-11] MEDS: LISINOPRIL 20 MG TABLET PO SCH ×2 (08:28→22:21)
[2020-11-11] MEDS: AMLODIPINE 5 MG TABLET PO SCH ×2 (08:28→22:20)
[2020-11-11] MEDS: INSULIN GLARGINE 100 UNITS/ML, PEN SQ-INSULIN SCH ×2 (08:33→22:27)
[2020-11-11] MEDS: SODIUM CHLORIDE FLUSH 10ML SYR IVF SCH ×2 (08:33→22:22)
[2020-11-11] MEDS: ENOXAPARIN 40 MG/0.4 ML SQ SCH (12:26)
[2020-11-11 14:05] VITALS: BP 92/59
[2020-11-11 20:45] VITALS: BP 142/84
[2020-11-12 03:01] VITALS: BP 148/82
[2020-11-12] MEDS: AMPICILLIN/SULBACTAM 3 GM in SODIUM CHLORIDE 0.9% 100 ML IV SCH ×4 (04:24→22:08)
[2020-11-12] MEDS: METOPROLOL SUCCINATE 50 MG TAB.ER.24H PO SCH (06:51)
[2020-11-12] MEDS: INSULIN LISPRO 100 UNITS/ML, PEN SQ-INSULIN SCH ×7 (07:00→21:00)
[2020-11-12 08:00] VITALS: BP 116/71
[2020-11-12] MEDS: metFORMIN 500 MG TABLET PO SCH ×2 (08:00→16:04)
[2020-11-12] MEDS: SODIUM CHLORIDE FLUSH 10ML SYR IVF SCH ×2 (09:00→21:00)
[2020-11-12] MEDS: ACETAMINOPHEN 325 MG TABLET PO PRN (09:33)
[2020-11-12] MEDS: AMLODIPINE 5 MG TABLET PO SCH ×2 (09:33→21:00)
[2020-11-12] MEDS: HYDROCHLOROTHIAZIDE 25 MG TABLET PO SCH (09:34)
[2020-11-12] MEDS: LISINOPRIL 20 MG TABLET PO SCH ×2 (09:34→21:00)
[2020-11-12] MEDS: OXYcodone IR 5MG TABLET PO PRN ×2 (09:34→17:42)
[2020-11-12 13:15] VITALS: BP 87/58
[2020-11-12] MEDS: ENOXAPARIN 40 MG/0.4 ML SQ SCH (13:44)
[2020-11-12] MEDS ORDERED: FENTANYL PF 100 MCG/2ML ONE ×2 (19:41→21:22)
[2020-11-12] MEDS ORDERED: MIDAZOLAM 1 MG/ML, 2ML ONE (19:41)
[2020-11-12] MEDS ORDERED: KETOROLAC 30 MG/1 ML ONE ×2 (20:03→21:23)
[2020-11-12] MEDS ORDERED: ROCURONIUM 10 MG/ML,10ML ONE (20:03)
[2020-11-12] MEDS ORDERED: ONDANSETRON 2MG/ML, 2ML ONE (20:03)
[2020-11-12] MEDS ORDERED: PROPOFOL 10 MG/ML, 20ML ONE (20:03)
[2020-11-12] MEDS ORDERED: BUPIVACAINE/PF-EPI 0.5% 1:200K ONE (20:21)
[2020-11-12] MEDS ORDERED: hydrALAzine 20 MG/ML, 1ML IV PRN (20:30)
[2020-11-12] MEDS ORDERED: LABETALOL 5MG/ML, 20ML IV PRN (20:30)
[2020-11-12] MEDS ORDERED: DIAZEPAM 5 MG/ML, 2ML IVPush PRN (20:30)
[2020-11-12] MEDS ORDERED: OXYcodone 5 MG/5 ML ORAL.SOL UDC PO PRN (20:30)
[2020-11-12] MEDS ORDERED: ALBUTEROL SULFATE 2.5 MG/3 ML NPPB PRN (20:30)
[2020-11-12] MEDS ORDERED: MEPERIDINE/PF 25MG/0.5ML IVPush PRN (20:30)
[2020-11-12] MEDS ORDERED: ACETAMINOPHEN 325 MG TABLET PO PRN (20:30)
[2020-11-12] MEDS ORDERED: PROMETHAZINE 25 MG/ML, 1ML IV PRN (20:30)
[2020-11-12] MEDS ORDERED: KETOROLAC 30 MG/1 ML IV PRN (20:30)
[2020-11-12] MEDS ORDERED: HYDROmorphone 2 MG/ML, 1ML IVPush PRN (20:30)
[2020-11-12] MEDS: FENTANYL PF 100 MCG/2ML IV PRN ×2 (21:23→21:29)
[2020-11-12] MEDS ORDERED: OXYcodone 5 MG/5 ML ORAL.SOL UDC ONE (21:23)
[2020-11-12] MEDS ORDERED: HYDROmorphone 1 MG/ML, 1ML INJ ONE (21:26)
[2020-11-12 22:06] VITALS: BP 104/98
[2020-11-13 00:01] VITALS: BP 99/52
[2020-11-13] MEDS: OXYcodone IR 5MG TABLET PO PRN ×5 (03:34→23:25)
[2020-11-13] MEDS: ACETAMINOPHEN 325 MG TABLET PO PRN ×5 (03:35→23:24)
[2020-11-13 04:16] VITALS: BP 124/77
[2020-11-13] MEDS: AMPICILLIN/SULBACTAM 3 GM in SODIUM CHLORIDE 0.9% 100 ML IV SCH ×2 (04:28→10:23)
[2020-11-13] MEDS: METOPROLOL SUCCINATE 50 MG TAB.ER.24H PO SCH (06:18)
[2020-11-13 06:42] LABS: BASOPHILS % (AUTO) 1 % (0-1); EOSINOPHILS % (AUTO) 3 % (1-7); LYMPHOCYTES % (AUTO) 21 % (22-44); MEAN CORPUSCULAR HEMOGLOBIN 28.4 pg (27.5-34.5); MEAN CORPUSCULAR HGB CONC 33.2 g/dL (33.2-36.2); MEAN PLATELET VOLUME 8.7 fL (7.4-10.4); MONOCYTES % (AUTO) 9 % (2-9); NEUTROPHILS % (AUTO) 66 % (42-75); PLATELET COUNT 484 x10^3/uL (130-400); RED BLOOD COUNT 4.28 x10^6/uL (4.38-5.82); RED CELL DISTRIBUTION WIDTH 13.1 % (9.4-14.8)
[2020-11-13 06:49] LABS: MD NO
[2020-11-13 06:52] LABS: ANION GAP 6 mmol/L (5-15); CALCIUM 8.3 mg/dL (8.5-10.1); CHLORIDE 101 mmol/L (98-107); CREATININE 1.06 mg/dL (0.7-1.3)
[2020-11-13 07:41] VITALS: BP 110/70
[2020-11-13] MEDS: INSULIN LISPRO 100 UNITS/ML, PEN SQ-INSULIN SCH ×7 (07:51→23:24)
[2020-11-13] MEDS: metFORMIN 500 MG TABLET PO SCH ×2 (08:00→16:48)
[2020-11-13] MEDS: INSULIN GLARGINE 100 UNITS/ML, PEN SQ-INSULIN SCH ×2 (08:06→23:23)
[2020-11-13] MEDS: HYDROCHLOROTHIAZIDE 25 MG TABLET PO SCH (08:07)
[2020-11-13] MEDS: LISINOPRIL 20 MG TABLET PO SCH ×2 (08:07→23:25)
[2020-11-13] MEDS: AMLODIPINE 5 MG TABLET PO SCH ×2 (08:07→23:25)
[2020-11-13] MEDS: SODIUM CHLORIDE FLUSH 10ML SYR IVF SCH ×2 (08:10→23:29)
[2020-11-13] MEDS ORDERED: INSULIN GLARGINE 100 UNITS/ML, PEN SQ-INSULIN SCH (09:00)
[2020-11-13] MEDS ORDERED: INSULIN NPH HUMAN 100 UNIT/ML, 3ML VIAL SQ-INSULIN ONE (12:00)
[2020-11-13 13:35] VITALS: BP 132/73
[2020-11-13] MEDS: ENOXAPARIN 40 MG/0.4 ML SQ SCH (13:43)
[2020-11-13] MEDS: CEFAZOLIN 2,000 MG in SODIUM CHLORIDE 0.9% 50 ML IV SCH (17:34)
[2020-11-13 18:25] VITALS: BP 137/72
[2020-11-14] MEDS: CEFAZOLIN 2,000 MG in SODIUM CHLORIDE 0.9% 50 ML IV SCH ×3 (01:39→17:19)
[2020-11-14 01:57] VITALS: BP 157/92
[2020-11-14] MEDS: ACETAMINOPHEN 325 MG TABLET PO PRN ×5 (03:35→20:44)
[2020-11-14] MEDS: OXYcodone IR 5MG TABLET PO PRN ×5 (03:36→20:44)
[2020-11-14] MEDS: METOPROLOL SUCCINATE 50 MG TAB.ER.24H PO SCH (05:03)
[2020-11-14 05:47] LABS: BASOPHILS % (AUTO) 1 % (0-1); EOSINOPHILS % (AUTO) 3 % (1-7); LYMPHOCYTES % (AUTO) 24 % (22-44); MEAN CORPUSCULAR HGB CONC 34.4 g/dL (33.2-36.2); MEAN PLATELET VOLUME 8.7 fL (7.4-10.4); MONOCYTES % (AUTO) 10 % (2-9); NEUTROPHILS % (AUTO) 63 % (42-75); PLATELET COUNT 515 x10^3/uL (130-400); RED CELL DISTRIBUTION WIDTH 12.7 % (9.4-14.8)
[2020-11-14 05:58] LABS: CHLORIDE 103 mmol/L (98-107)
[2020-11-14 05:59] LABS: HCT (SEDRATE) 36.6 % (39.2-51.8)
[2020-11-14 06:05] LABS: MD NO
[2020-11-14 06:25] LABS: ALANINE AMINOTRANSFERASE 19 U/L (12-78); ALBUMIN 2.6 g/dL (3.4-5.0); ALKALINE PHOSPHATASE 127 U/L (45-117); ANION GAP 4 mmol/L (5-15); BILIRUBIN,TOTAL 0.3 mg/dL (0.2-1.0); CALCIUM 8.5 mg/dL (8.5-10.1); CREATININE 0.88 mg/dL (0.7-1.3); TOTAL PROTEIN 7.4 g/dL (6.4-8.2)
[2020-11-14 07:25] VITALS: BP 124/67
[2020-11-14] MEDS: INSULIN LISPRO 100 UNITS/ML, PEN SQ-INSULIN SCH ×4 (07:49→17:19)
[2020-11-14] MEDS: metFORMIN 500 MG TABLET PO SCH ×2 (07:52→17:19)
[2020-11-14] MEDS: AMLODIPINE 5 MG TABLET PO SCH ×2 (08:56→20:40)
[2020-11-14] MEDS: LISINOPRIL 20 MG TABLET PO SCH ×2 (08:56→20:41)
[2020-11-14] MEDS: HYDROCHLOROTHIAZIDE 25 MG TABLET PO SCH (08:56)
[2020-11-14] MEDS: SODIUM CHLORIDE FLUSH 10ML SYR IVF SCH ×2 (08:57→20:44)
[2020-11-14] MEDS: INSULIN GLARGINE 100 UNITS/ML, PEN SQ-INSULIN SCH ×2 (08:57→20:39)
[2020-11-14] MEDS ORDERED: HYDROmorphone 1 MG/ML, 1ML INJ ONE (12:11)
[2020-11-14] MEDS ORDERED: HYDROmorphone 1 MG/ML, 1ML INJ IV ONE (12:30)
[2020-11-14 13:01] VITALS: BP 148/86
[2020-11-14] MEDS: ENOXAPARIN 40 MG/0.4 ML SQ SCH (13:50)
[2020-11-14 19:42] VITALS: BP 129/77
[2020-11-15 00:52] VITALS: BP 109/62
[2020-11-15] MEDS: OXYcodone IR 5MG TABLET PO PRN ×5 (01:36→21:20)
[2020-11-15] MEDS: ACETAMINOPHEN 325 MG TABLET PO PRN ×5 (01:36→21:19)
[2020-11-15] MEDS: CEFAZOLIN 2,000 MG in SODIUM CHLORIDE 0.9% 50 ML IV SCH ×3 (01:41→16:52)
[2020-11-15 06:02] LABS: BASOPHILS % (AUTO) 1 % (0-1); EOSINOPHILS % (AUTO) 4 % (1-7); LYMPHOCYTES % (AUTO) 34 % (22-44); MEAN CORPUSCULAR HEMOGLOBIN 28.8 pg (27.5-34.5); MEAN PLATELET VOLUME 8.8 fL (7.4-10.4); MONOCYTES % (AUTO) 12 % (2-9); NEUTROPHILS % (AUTO) 49 % (42-75); PLATELET COUNT 514 x10^3/uL (130-400); RED BLOOD COUNT 4.18 x10^6/uL (4.38-5.82); RED CELL DISTRIBUTION WIDTH 12.8 % (9.4-14.8)
[2020-11-15 06:12] LABS: MD NO
[2020-11-15 06:19] VITALS: BP 111/71
[2020-11-15] MEDS: METOPROLOL SUCCINATE 50 MG TAB.ER.24H PO SCH (06:21)
[2020-11-15 07:53] VITALS: BP 112/66
[2020-11-15] MEDS: metFORMIN 500 MG TABLET PO SCH ×3 (08:00→16:05)
[2020-11-15] MEDS: LISINOPRIL 20 MG TABLET PO SCH ×2 (08:43→21:08)
[2020-11-15] MEDS: HYDROCHLOROTHIAZIDE 25 MG TABLET PO SCH (08:43)
[2020-11-15] MEDS: AMLODIPINE 5 MG TABLET PO SCH ×2 (08:44→21:08)
[2020-11-15] MEDS: INSULIN LISPRO 100 UNITS/ML, PEN SQ-INSULIN SCH ×3 (08:45→16:52)
[2020-11-15] MEDS: SODIUM CHLORIDE FLUSH 10ML SYR IVF SCH (09:27)
[2020-11-15] MEDS: INSULIN GLARGINE 100 UNITS/ML, PEN SQ-INSULIN SCH ×2 (09:27→21:14)
[2020-11-15] MEDS: ENOXAPARIN 40 MG/0.4 ML SQ SCH (12:59)
[2020-11-15] MEDS ORDERED: INSU100I11 SQ-INSULIN (13:24)
[2020-11-15] MEDS ORDERED: HYDR25TA6 PO (13:24)
[2020-11-15] MEDS ORDERED: METO-93 PO (13:24)
[2020-11-15] MEDS ORDERED: HYDR-3246 PO (13:24)
[2020-11-15 13:30] VITALS: BP 137/83
[2020-11-15 18:52] VITALS: BP 127/79
[2020-11-16] MEDS: SODIUM CHLORIDE FLUSH 10ML SYR IVF SCH (00:58)
[2020-11-16] MEDS: CEFAZOLIN 2,000 MG in SODIUM CHLORIDE 0.9% 50 ML IV SCH ×2 (00:58→11:06)
[2020-11-16 01:13] VITALS: BP 120/74
[2020-11-16] MEDS: OXYcodone IR 5MG TABLET PO PRN ×3 (01:26→11:38)
[2020-11-16] MEDS: ACETAMINOPHEN 325 MG TABLET PO PRN ×2 (06:03→11:38)
[2020-11-16] MEDS: METOPROLOL SUCCINATE 50 MG TAB.ER.24H PO SCH (06:22)
[2020-11-16 07:14] VITALS: BP 130/56
[2020-11-16] MEDS: metFORMIN 500 MG TABLET PO SCH (08:00)
[2020-11-16] MEDS: HYDROCHLOROTHIAZIDE 25 MG TABLET PO SCH (08:05)
[2020-11-16] MEDS: LISINOPRIL 20 MG TABLET PO SCH (08:05)
[2020-11-16] MEDS: INSULIN LISPRO 100 UNITS/ML, PEN SQ-INSULIN SCH ×2 (08:06→11:34)
[2020-11-16] MEDS: AMLODIPINE 5 MG TABLET PO SCH (08:06)
[2020-11-16] MEDS: INSULIN GLARGINE 100 UNITS/ML, PEN SQ-INSULIN SCH (08:07)
[2020-11-16 11:46] VITALS: BP 124/80
== END 2020-11-16 13:30 | disposition home or self-care (01) | DRG 854 ==
LOC: ED 09:02 → 4NE 12:37
PROVIDERS: ADMIT Hospitalist; ATTEND Family Medicine
PROC: 0J970ZZ Drainage of Back Subcutaneous Tissue and Fascia, Open Approach (ICD-10-PCS; principal; 2020-11-12 13:00)
DX: A41.9 Sepsis, unspecified organism (principal); L02.212 Cutaneous abscess of back [any part, except buttock and flank]; L03.312 Cellulitis of back [any part except buttock and flank]; B95.61 Methicillin susceptible Staphylococcus aureus infection as the cause of diseases classified elsewhere; D63.8 Anemia in other chronic diseases classified elsewhere; E11.65 Type 2 diabetes mellitus with hyperglycemia; E66.01 Morbid (severe) obesity due to excess calories; E78.5 Hyperlipidemia, unspecified; E11.42 Type 2 diabetes mellitus with diabetic polyneuropathy; Z20.828 Contact with and (suspected) exposure to other viral communicable diseases; I10 Essential (primary) hypertension; M17.0 Bilateral primary osteoarthritis of knee; R70.0 Elevated erythrocyte sedimentation rate; Z68.37 Body mass index [BMI] 37.0-37.9, adult; Z79.4 Long term (current) use of insulin; Z83.3 Family history of diabetes mellitus; Z88.1 Allergy status to other antibiotic agents
CPT/HCPCS: 36415; 71045; 71260; 74176; 76604; 80048; 80053; 80061; 82947; 82962; 83036; 83605; 83735; 84484; 85025; 85651; 86140; 87015; 87040; 87070; 87075; 87077; 87116; 87186; 87205; 87206; 87635; 93005; 96374; 99285; G0378; J0295; J0690; J0878; J1170; J1650; J1885; J2250; J2405; J2704; J3010; J3370; J1815; J7030; J7050; J7120; Q0163